=== PATIENT | female | born 1985 | race Caucasian/White ===

== ENCOUNTER 2016-11-12 21:08 | Emergency (ER) | payer OTHER ==
[~2016-11-12 21:08] MED LIST: ALLEGRA60 MG; MULTIPLE VITAMIN PO; VICODIN EQUIVAL1 TAB PO
--- NOTE | 2016-11-12 22:07 | ED ORDER SUMMARY ---
..... Patient: JOAQUIN PEREZ OrderSheet [facility] VisitID: [id number] [address] [place] [address] 31y, F Registration Date/Time: 11/12/2016 ORDER SHEET Weight: 81.6 kg (stated) Allergies: No Known Drug Allergy GENERAL ORDERS: MEDICATION ORDERS: Toradol IM 60 mg (NOW) (21:33 11/12/2016 Braulio Tello) (Ack 21:41 MWinterer R.N.) (21:46 MWinterer R.N.) IV FLUIDS: ORDER SHEET NOTES: [Electronically signed by Jamie Monaco Dr. (22:17 11/12/2016)] [Electronically signed by Kat Green R.N. (23:13 11/12/2016)] [Electronically locked/signed by Kat Green R.N. (23:13 11/12/2016)]
--- NOTE | 2016-11-12 22:07 | ED NURSING NOTES ---
Clinical Report - Nurses [facility] [address] [place] [address] 11/12/2016 21:08 Patient: JOAQUIN PEREZ TRIAGE Acuity: LEVEL 4. Chief Complaint: LEFT EAR PAIN. Alert. No acute distress. SEPSIS SCREEN: Sepsis Screen. Negative (no infection suspected/documented). --21:18 Kat Green R.N. 21:15 11/12/16. BP: 145/84. HR: 83. RR: 16. O2 saturation: 97% on room air. Temp: 98.1 F (oral). Pain level now: 04/01. --21:18 Kat Green R.N. Weight: 81.6 kg stated. Height/Length: 66 inches Per Patient. BMI: 29. --21:17 Kat Green R.N. Medications None. --21:16 Kat Green R.N. Medication/allergy information source: the patient. --21:18 Kat Green R.N. Allergies No Known Drug Allergy. --21:16 Kat Green R.N. History Arrived by private vehicle. Historian: patient. Unaccompanied. Primary physician (Martin). This started today. 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 PAST MEDICAL HX: Immunizations: up-to-date. Uses an intrauterine device. SOCIAL HX: Current every day light tobacco smoker (cigarette)- less than 1/2 a pack per day. Occasional alcohol use. No drug use. FALL RISK ASSESSMENT: Fall risk assessment completed. No fall risk identified. NUTRITIONAL RISK ASSESSMENT: The nutritional risk assessment revealed no deficiencies. FUNCTIONAL ASSESSMENT: Functional assessment: no impairments noted. LEARNING NEEDS ASSESSMENT: The learning needs assessment revealed no barriers. SKIN INTEGRITY ASSESSMENT: Skin integrity risk assessment completed. No skin integrity risk identified. --21:18 Kat Green R.N. Assessment GENERAL / NEURO / PSYCH: Alert. Oriented X 4. Appears in no acute distress. Hess[place] Coma Scale: 15- eyes open spontaneously (4); best verbal response- oriented x 4 (5); best motor response- obeys commands (6). Patient appears calm and cooperative. RESPIRATORY: Respirations not labored. CVS: Capillary refill less than 2 seconds. SKIN: Mucous membranes are pink. Skin is warm and dry. --:18 Kat Green R.N. Interventions ID band on patient. To treatment room. --: Kat Green R.N. PHYSICAL ASSESSMENT :11/12/16. Ambulatory to room. GENERAL / NEURO / PSYCH: Alert. Appears in no acute distress. HEENT: No facial asymmetry noted. Pupils equal, round and reactive to light. Pharynx within normal limits. RESPIRATORY: Respirations not labored. SKIN: Skin is warm and dry. --: Kat Green R.N. NURSING PROGRESS NOTES :11/12/16. Two patient identifiers checked. Call light placed in reach. Bed placed in lowest position. Brakes of bed on. Patient ready for evaluation- chart flagged. --:19 Kat Green R.N. 21:46 11/12/2016 Toradol (Ketorolac Tromethamine) IM 60 mg given. Given in the right anterior lateral thigh. Allergies verified and confirmed 5 rights. --21:46 Kat Green R.N. DISPOSITION / DISCHARGE Departure time: 2219Nov 12 2016. Condition at departure: improved and stable. No learning barriers present. Discharge instructions provided and reviewed with the patient. Reviewed medication(s) side effects, precautions and dosing information. Prescription(s) given to the patient. Patient verbalized understanding. Written instructions provided in Guyanese. The patient was discharged by the physician. She was discharged home. She left the Emergency Department ambulatory and via private vehicle. Patient driving. --23:12 Kat Green R.N. Locked/Released at 11/12/2016 23:13 by Kat Green R.N.
--- NOTE | 2016-11-12 22:07 | ED NURSING NOTES ---
Clinical Report - Nurses [facility] [address] [place] [address] 11/12/2016 21:08 Patient: JOAQUIN PEREZ TRIAGE Acuity: LEVEL 4. Chief Complaint: LEFT EAR PAIN. Alert. No acute distress. SEPSIS SCREEN: Sepsis Screen. Negative (no infection suspected/documented). --21:18 Kat Green R.N. 21:15 11/12/16. BP: 145/84. HR: 83. RR: 16. O2 saturation: 97% on room air. Temp: 98.1 F (oral). Pain level now: 04/01. --21:18 Kat Green R.N. Weight: 81.6 kg stated. Height/Length: 66 inches Per Patient. BMI: 29. --21:17 Kat Green R.N. Medications None. --21:16 Kat Green R.N. Medication/allergy information source: the patient. --21:18 Kat Green R.N. Allergies No Known Drug Allergy. --21:16 Kat Green R.N. History Arrived by private vehicle. Historian: patient. Unaccompanied. Primary physician (Martin). This started today. 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 PAST MEDICAL HX: Immunizations: up-to-date. Uses an intrauterine device. SOCIAL HX: Current every day light tobacco smoker (cigarette)- less than 1/2 a pack per day. Occasional alcohol use. No drug use. FALL RISK ASSESSMENT: Fall risk assessment completed. No fall risk identified. NUTRITIONAL RISK ASSESSMENT: The nutritional risk assessment revealed no deficiencies. FUNCTIONAL ASSESSMENT: Functional assessment: no impairments noted. LEARNING NEEDS ASSESSMENT: The learning needs assessment revealed no barriers. SKIN INTEGRITY ASSESSMENT: Skin integrity risk assessment completed. No skin integrity risk identified. --21:18 Kat Green R.N. Assessment GENERAL / NEURO / PSYCH: Alert. Oriented X 4. Appears in no acute distress. Elton Coma Scale: 15- eyes open spontaneously (4); best verbal response- oriented x 4 (5); best motor response- obeys commands (6). Patient appears calm and cooperative. RESPIRATORY: Respirations not labored. CVS: Capillary refill less than 2 seconds. SKIN: Mucous membranes are pink. Skin is warm and dry. --:18 Kat Green R.N. Interventions ID band on patient. To treatment room. --: Kat Green R.N. PHYSICAL ASSESSMENT :11/12/16. Ambulatory to room. GENERAL / NEURO / PSYCH: Alert. Appears in no acute distress. HEENT: No facial asymmetry noted. Pupils equal, round and reactive to light. Pharynx within normal limits. RESPIRATORY: Respirations not labored. SKIN: Skin is warm and dry. --: Kat Green R.N. NURSING PROGRESS NOTES :11/12/16. Two patient identifiers checked. Call light placed in reach. Bed placed in lowest position. Brakes of bed on. Patient ready for evaluation- chart flagged. --:19 Kat Green R.N. 21:46 11/12/2016 Toradol (Ketorolac Tromethamine) IM 60 mg given. Given in the right anterior lateral thigh. Allergies verified and confirmed 5 rights. --21:46 Kat Green R.N. DISPOSITION / DISCHARGE Departure time: 2219Nov 12 2016. Condition at departure: improved and stable. No learning barriers present. Discharge instructions provided and reviewed with the patient. Reviewed medication(s) side effects, precautions and dosing information. Prescription(s) given to the patient. Patient verbalized understanding. Written instructions provided in Burundian. The patient was discharged by the physician. She was discharged home. She left the Emergency Department ambulatory and via private vehicle. Patient driving. --23:12 Kat Green R.N. Locked/Released at 11/12/2016 23:13 by Kat Green R.N.
--- NOTE | 2016-11-12 22:07 | ED ORDER SUMMARY ---
..... Patient: JOAQUIN PEREZ OrderSheet [facility] VisitID: [id number] [address] [place] [address] 31y, F Registration Date/Time: 11/12/2016 ORDER SHEET Weight: 81.6 kg (stated) Allergies: No Known Drug Allergy GENERAL ORDERS: MEDICATION ORDERS: Toradol IM 60 mg (NOW) (21:33 11/12/2016 Braulio Tello) (Ack 21:41 MWinterer R.N.) (21:46 MWinterer R.N.) IV FLUIDS: ORDER SHEET NOTES: [Electronically signed by Jamie Monaco Dr. (22:17 11/12/2016)] [Electronically signed by Kat Green R.N. (23:13 11/12/2016)] [Electronically locked/signed by Kat Green R.N. (23:13 11/12/2016)]
--- NOTE | 2016-11-12 22:07 | ED CLINICAL REPORT ---
Clinical Report - Physicians/Mid Levels [facility] [address] [place] [address] 11/12/2016 21:08 Patient: JOAQUIN PEREZ Time Seen: 21:17; initial patient contact. Arrived- By private vehicle. Historian- patient. HISTORY OF PRESENT ILLNESS Chief Complaint: EARACHE. Modifying factors. Not worsened by anything. Not relieved by anything. This started today and is still present and worsening. The patient cannot recall the circumstances at the onset. Location- left ear. The pain is described as moderate. The patient has had ear pain. No ear drainage, hearing loss, nasal discharge, complaint of foreign body in the ear or ear trauma. No recent barotrauma, tinnitus, toothache or jaw pain. The patient has had nasal congestion, sinus pressure and a sore throat. Similar symptoms previously: None. Recent medical care: Not recently seen/assessed. REVIEW OF SYSTEMS No fever, chills, cough, difficulty breathing or headache. All systems otherwise negative, except as recorded above. PAST HISTORY Negative. Surgeries: No history of previous surgery. Medications: None. Allergies: No Known Drug Allergy. SOCIAL HISTORY Current every day smoker. Occasional alcohol use. No drug use. ADDITIONAL NOTES The nursing notes have been reviewed with agreement regarding the chief complaint, PMH and patient medications and allergies. PHYSICAL EXAM Vital Signs: 11/12/2016 21:15 BP: 145/84. HR: 83. RR: 16. O2 saturation: 97%. Temp: 98.1 F. Pain level now: 6/10. Have been reviewed. Hypertensive. Heart rate normal. Respiratory rate normal. Temperature normal. Oxygen saturation normal. Appearance: Alert. No acute distress. Eyes: Eyes normal inspection. Ear (right): Right ear normal. Throat: Mild generalized pharyngeal erythema. Ear (left): There is cerumen in the external canal and fluid behind the tympanic membrane. No erythema of the tympanic membrane, dullness of the tympanic membrane or bulging of the tympanic membrane. Does not have loss of tympanic membrane landmarks. Light reflex normal. Neck: Normal inspection. No lymphadenopathy. CVS: Normal heart rate and rhythm. Heart sounds normal. Respiratory: No respiratory distress. Breath sounds normal. Skin: Normal skin color. No rash. Neuro: Oriented X 3. PROGRESS AND PROCEDURES Course of Care: 11/12/2016 21:15 BP: 145/84. HR: 83. RR: 16. O2 saturation: 97%. Temp: 98.1 F. Pain level now: 6/10. Vital Signs: have been reviewed. Hypertensive. Heart rate normal. Respiratory rate normal. Temperature normal. Oxygen saturation normal. Disposition: Discharged home in good and improved condition. Condition: good. CLINICAL IMPRESSION Acute left otalgia. Acute sphenoidal sinusitis INSTRUCTIONS Prescription Medications: Diclofenac 50 mg tablets: take 1 tablet orally every 8 hours as needed for pain. Dispense thirty (30). No refill. Fluticasone nasal spray: 2 sprays to each nostril daily. Dispense one (1) unit. No refills. Follow-up: Screening today revealed the patient's blood pressure to be in the hypertensive range. The patient should follow up with a primary care provider for blood pressure management. (Electronically signed by Jamie Monaco Dr. 11/12/2016 22:17)
--- NOTE | 2016-11-12 22:07 | ED CLINICAL REPORT ---
Clinical Report - Physicians/Mid Levels [facility] [address] [place] [address] 11/12/2016 21:08 Patient: JOAQUIN PEREZ Time Seen: 21:17; initial patient contact. Arrived- By private vehicle. Historian- patient. HISTORY OF PRESENT ILLNESS Chief Complaint: EARACHE. Modifying factors. Not worsened by anything. Not relieved by anything. This started today and is still present and worsening. The patient cannot recall the circumstances at the onset. Location- left ear. The pain is described as moderate. The patient has had ear pain. No ear drainage, hearing loss, nasal discharge, complaint of foreign body in the ear or ear trauma. No recent barotrauma, tinnitus, toothache or jaw pain. The patient has had nasal congestion, sinus pressure and a sore throat. Similar symptoms previously: None. Recent medical care: Not recently seen/assessed. REVIEW OF SYSTEMS No fever, chills, cough, difficulty breathing or headache. All systems otherwise negative, except as recorded above. PAST HISTORY Negative. Surgeries: No history of previous surgery. Medications: None. Allergies: No Known Drug Allergy. SOCIAL HISTORY Current every day smoker. Occasional alcohol use. No drug use. ADDITIONAL NOTES The nursing notes have been reviewed with agreement regarding the chief complaint, PMH and patient medications and allergies. PHYSICAL EXAM Vital Signs: 11/12/2016 21:15 BP: 145/84. HR: 83. RR: 16. O2 saturation: 97%. Temp: 98.1 F. Pain level now: 6/10. Have been reviewed. Hypertensive. Heart rate normal. Respiratory rate normal. Temperature normal. Oxygen saturation normal. Appearance: Alert. No acute distress. Eyes: Eyes normal inspection. Ear (right): Right ear normal. Throat: Mild generalized pharyngeal erythema. Ear (left): There is cerumen in the external canal and fluid behind the tympanic membrane. No erythema of the tympanic membrane, dullness of the tympanic membrane or bulging of the tympanic membrane. Does not have loss of tympanic membrane landmarks. Light reflex normal. Neck: Normal inspection. No lymphadenopathy. CVS: Normal heart rate and rhythm. Heart sounds normal. Respiratory: No respiratory distress. Breath sounds normal. Skin: Normal skin color. No rash. Neuro: Oriented X 3. PROGRESS AND PROCEDURES Course of Care: 11/12/2016 21:15 BP: 145/84. HR: 83. RR: 16. O2 saturation: 97%. Temp: 98.1 F. Pain level now: 6/10. Vital Signs: have been reviewed. Hypertensive. Heart rate normal. Respiratory rate normal. Temperature normal. Oxygen saturation normal. Disposition: Discharged home in good and improved condition. Condition: good. CLINICAL IMPRESSION Acute left otalgia. Acute sphenoidal sinusitis INSTRUCTIONS Prescription Medications: Diclofenac 50 mg tablets: take 1 tablet orally every 8 hours as needed for pain. Dispense thirty (30). No refill. Fluticasone nasal spray: 2 sprays to each nostril daily. Dispense one (1) unit. No refills. Follow-up: Screening today revealed the patient's blood pressure to be in the hypertensive range. The patient should follow up with a primary care provider for blood pressure management. (Electronically signed by Jamie Monaco Dr. 11/12/2016 22:17)
--- NOTE | 2016-11-12 23:13 | ED MAR SUMMARY ---
..... Medication Administration Record [facility] [address] [place] [address] Patient: JOAQUIN PEREZ Visit ID: [id number] 31y, F Weight: 81.6 kg Height/Length: 66 in BMI: 29 ALLERGIES: No Known Drug Allergy Given 21:46 11/12/2016 Kat Green R.N. Medication Administered: TORADOL [IM] (KETOROLAC TROMETHAMINE), Dose: 60 mg IM. Medication Ordered: Toradol IM 60 mg (NOW).
--- NOTE | 2016-11-12 23:13 | ED DISCHARGE INSTRUCTIONS ---
Patient: JOAQUIN PEREZ General Instructions [facility] VisitID: [id number] [place] [address] 31y, F Registration Date/Time: 11/12/2016 Acute left otalgia. Acute sphenoidal sinusitis INSTRUCTIONS Prescription Medications: Diclofenac 50 mg tablets: take 1 tablet orally every 8 hours as needed for pain. Dispense thirty (30). No refill. Fluticasone nasal spray: 2 sprays to each nostril daily. Dispense one (1) unit. No refills. Follow-up: Screening today revealed the patient's blood pressure to be in the hypertensive range. The patient should follow up with a primary care provider for blood pressure management. ADDITIONAL INFORMATION Sinusitis [No Abx Tx] The sinuses are air-filled spaces within the bones of the face. They connect to the inside of the nose. Sinusitis is an inflammation of the tissue lining the sinus cavity. Sinus inflammation can occur during a cold or hay-fever (allergies to pollens and other particles in the air) and cause symptoms of sinus congestion and fullness and perhaps a low-grade fever. This does not require antibiotic treatment. Home Care: Drink plenty of water, hot tea, and other liquids to stay well hydrated. This thins the mucus and promotes sinus drainage. Apply heat to the painful areas of the face. Use a towel soaked in hot water. Or, burglar alarm installer the shower and direct the hot spray onto your face. This is a good way to inhale warm water vapor and get heat on your face at the same time. (Cover your mouth and nose with your hands so you can still breathe as you do this.) Use a vaporizer with products such as [employer] VapoRub (contains menthol) at night. Suck on peppermint, menthol or eucalyptus hard candies during the day. An expectorant containing guaifenesin (such as Robitussin), helps to thin the mucus and promote drainage from the sinuses. [id number] decongestants may be used unless a similar medicine was prescribed. Nasal sprays work the fastest. Use one that contains phenylephrine (René-synephrine, Sinex and others) or oxymetazoline (Afrin). First blow the nose gently to remove mucus, then apply the drops. Do not use these medicines more often than directed on the label or for more than three days or symptoms may worsen. You may also use tablets containing pseudoephedrine (Sudafed). Many sinus remedies combine ingredients, which may increase side effects. Read the labels or ask the pharmacist for help. NOTE: Persons with high blood pressure should not use decongestants. They can raise blood pressure. Antihistamines are useful if allergies are a cause of your sinusitis. The mildest one is chlorpheniramine (available without a prescription). The dose for adults is 8-12mg three times a day. [NOTE: Do not use chlorpheniramine if you have glaucoma or if you are a man with trouble urinating due to an enlarged prostate.] Claritin (loratidine) is an antihistamine that causes less drowsiness and is a good alternative for daytime use. When allergies are the cause for sinusitis, a saline nasal rinse may give relief. Saline nasal rinse reduces swelling and clears excess mucus. This allows sinuses to drain. Pre-packaged kits are available at most drug stores. These contain pre-mixed salt packets and an irrigation device. You may use acetaminophen (Tylenol) or ibuprofen (Motrin, Advil) to control pain, unless another pain medicine was prescribed. [ NOTE: If you have chronic liver or kidney disease or ever had a stomach ulcer, talk with your doctor before using these medicines.] (Aspirin should never be used in anyone under 18 years of age who is ill with a fever. It may cause severe liver damage.) Follow Up with your doctor or this facility in one week or as instructed by our staff if not improving. Get Prompt Medical Attention if any of the following occur: Green or yellow drainage from the nose or into the back of the throat (post-nasal drip) Worsening sinus pain or headache Stiff neck Unusual drowsiness, confusion or not acting like your normal self Swelling of the forehead or eyelids Vision problems including blurred or double vision Fever of 100.4F (38C) or higher, or as directed by your healthcare provider Seizure Fluticasone Propionate Nasal spray, solution What is this medicine? FLUTICASONE (floo TIK a sone) is a corticosteroid. It helps decrease inflammation in your nose. This medicine is used to treat the symptoms of allergies like sneezing, itching, and runny or stuffy nose. How should I use this medicine? This medicine is for use in the nose. Follow the directions on your prescription label. This medicine works best if used regularly. Do not use more often than directed. Make sure that you are using your nasal spray correctly. Ask you doctor or health care provider if you have any questions. Talk to your tool design drafter regarding the use of this medicine in children. While this drug may be prescribed for children as young as 4 years old for selected conditions, precautions do apply. What side effects may I notice from receiving this medicine? Side effects that you should report to your doctor or health behavioral health care coordinator as soon as possible: allergic reactions like skin rash, itching or hives, swelling of the face, lips, or tongue changes in vision flu-like symptoms white patches or sores in the mouth or nose Side effects that usually do not require medical attention (report to your doctor or health behavioral health care coordinator if they continue or are bothersome): burning or irritation inside the nose or throat cough headache nosebleed unusual taste or smell What may interact with this medicine? ketoconazole metyrapone some medicines for HIV vaccines What if I miss a dose? If you miss a dose, use it as soon as you remember. If it is almost time for your next dose, use only that dose and continue with your regular schedule. Do not use double or extra doses. Where should I keep my medicine? Keep out of the reach of children. Store at room temperature between 15 and 30 degrees C (59 and 86 degrees F). Throw away any unused medicine after the expiration date. What should I tell my health care provider before I take this medicine? They need to know if you have any of these conditions: infection, like tuberculosis, herpes, or fungal infection recent surgery on nose or sinuses taking corticosteroid by mouth an unusual or allergic reaction to fluticasone, steroids, other medicines, foods, dyes, or preservatives or trying to get breast-feeding What should I watch for while using this medicine? Visit your doctor or health behavioral health care coordinator for regular checks on your progress. Some symptoms may improve within 12 hours after starting use. Check with your doctor or health behavioral health care coordinator if there is no improvement in your condition after 3 weeks of use. Do not come in contact with people who have chickenpox or the measles while you are taking this medicine. If you do, call your doctor right away. You have been given the following additional information: Sinusitis, No Abx Fluticasone Propionate Nasal spray, solution (Electronically signed by Jamie Monaco Dr. 11/12/2016 22:17)
--- NOTE | 2016-11-12 23:13 | ED MED RECONCILIATION SUMMARY ---
Patient: JOAQUIN PEREZ Medication Reconciliation Report [facility] VisitID: [id number] [place] [address] 31y, F Registration Date/Time: 11/12/2016 Weight: 81.6 kg Height/Length: 66 in. BMI: 29.0 ALLERGIES: No Known Drug Allergy The patient's Home Medications are listed below: NONE. The source(s) of the original Home Medication information: patient The following Medications were given to the patient in the Emergency Department: Toradol [IM] IM 60 mg, administered: 11/12/2016 9:46:00 PM The following Medications were prescribed to the patient: Diclofenac 50 mg tablets: take 1 tablet orally every 8 hours as needed for pain. Dispense thirty (30). No refill. -- Jamie Monaco Dr. Fluticasone nasal spray: 2 sprays to each nostril daily. Dispense one (1) unit. No refills. -- Jamie Monaco Dr.
--- NOTE | 2016-11-12 23:13 | ED MED RECONCILIATION SUMMARY ---
Patient: JOAQUIN PEREZ Medication Reconciliation Report [facility] VisitID: [id number] [place] [address] 31y, F Registration Date/Time: 11/12/2016 Weight: 81.6 kg Height/Length: 66 in. BMI: 29.0 ALLERGIES: No Known Drug Allergy The patient's Home Medications are listed below: NONE. The source(s) of the original Home Medication information: patient The following Medications were given to the patient in the Emergency Department: Toradol [IM] IM 60 mg, administered: 11/12/2016 9:46:00 PM The following Medications were prescribed to the patient: Diclofenac 50 mg tablets: take 1 tablet orally every 8 hours as needed for pain. Dispense thirty (30). No refill. -- Jamie Monaco Dr. Fluticasone nasal spray: 2 sprays to each nostril daily. Dispense one (1) unit. No refills. -- Jamie Monaco Dr.
--- NOTE | 2016-11-12 23:13 | ED MAR SUMMARY ---
..... Medication Administration Record [facility] [address] [place] [address] Patient: JOAQUIN PEREZ Visit ID: [id number] 31y, F Weight: 81.6 kg Height/Length: 66 in BMI: 29 ALLERGIES: No Known Drug Allergy Given 21:46 11/12/2016 Kat Green R.N. Medication Administered: TORADOL [IM] (KETOROLAC TROMETHAMINE), Dose: 60 mg IM. Medication Ordered: Toradol IM 60 mg (NOW).
--- NOTE | 2016-11-12 23:13 | ED DISCHARGE INSTRUCTIONS ---
Patient: JOAQUIN PEREZ General Instructions [facility] VisitID: [id number] [place] [address] 31y, F Registration Date/Time: 11/12/2016 Acute left otalgia. Acute sphenoidal sinusitis INSTRUCTIONS Prescription Medications: Diclofenac 50 mg tablets: take 1 tablet orally every 8 hours as needed for pain. Dispense thirty (30). No refill. Fluticasone nasal spray: 2 sprays to each nostril daily. Dispense one (1) unit. No refills. Follow-up: Screening today revealed the patient's blood pressure to be in the hypertensive range. The patient should follow up with a primary care provider for blood pressure management. ADDITIONAL INFORMATION Sinusitis [No Abx Tx] The sinuses are air-filled spaces within the bones of the face. They connect to the inside of the nose. Sinusitis is an inflammation of the tissue lining the sinus cavity. Sinus inflammation can occur during a cold or hay-fever (allergies to pollens and other particles in the air) and cause symptoms of sinus congestion and fullness and perhaps a low-grade fever. This does not require antibiotic treatment. Home Care: Drink plenty of water, hot tea, and other liquids to stay well hydrated. This thins the mucus and promotes sinus drainage. Apply heat to the painful areas of the face. Use a towel soaked in hot water. Or, track laying equipment operator the shower and direct the hot spray onto your face. This is a good way to inhale warm water vapor and get heat on your face at the same time. (Cover your mouth and nose with your hands so you can still breathe as you do this.) Use a vaporizer with products such as [employer] VapoRub (contains menthol) at night. Suck on peppermint, menthol or eucalyptus hard candies during the day. An expectorant containing guaifenesin (such as Robitussin), helps to thin the mucus and promote drainage from the sinuses. [id number] decongestants may be used unless a similar medicine was prescribed. Nasal sprays work the fastest. Use one that contains phenylephrine (René-synephrine, Sinex and others) or oxymetazoline (Afrin). First blow the nose gently to remove mucus, then apply the drops. Do not use these medicines more often than directed on the label or for more than three days or symptoms may worsen. You may also use tablets containing pseudoephedrine (Sudafed). Many sinus remedies combine ingredients, which may increase side effects. Read the labels or ask the pharmacist for help. NOTE: Persons with high blood pressure should not use decongestants. They can raise blood pressure. Antihistamines are useful if allergies are a cause of your sinusitis. The mildest one is chlorpheniramine (available without a prescription). The dose for adults is 8-12mg three times a day. [NOTE: Do not use chlorpheniramine if you have glaucoma or if you are a man with trouble urinating due to an enlarged prostate.] Claritin (loratidine) is an antihistamine that causes less drowsiness and is a good alternative for daytime use. When allergies are the cause for sinusitis, a saline nasal rinse may give relief. Saline nasal rinse reduces swelling and clears excess mucus. This allows sinuses to drain. Pre-packaged kits are available at most drug stores. These contain pre-mixed salt packets and an irrigation device. You may use acetaminophen (Tylenol) or ibuprofen (Motrin, Advil) to control pain, unless another pain medicine was prescribed. [ NOTE: If you have chronic liver or kidney disease or ever had a stomach ulcer, talk with your doctor before using these medicines.] (Aspirin should never be used in anyone under 18 years of age who is ill with a fever. It may cause severe liver damage.) Follow Up with your doctor or this facility in one week or as instructed by our staff if not improving. Get Prompt Medical Attention if any of the following occur: Green or yellow drainage from the nose or into the back of the throat (post-nasal drip) Worsening sinus pain or headache Stiff neck Unusual drowsiness, confusion or not acting like your normal self Swelling of the forehead or eyelids Vision problems including blurred or double vision Fever of 100.4F (38C) or higher, or as directed by your healthcare provider Seizure Fluticasone Propionate Nasal spray, solution What is this medicine? FLUTICASONE (floo TIK a sone) is a corticosteroid. It helps decrease inflammation in your nose. This medicine is used to treat the symptoms of allergies like sneezing, itching, and runny or stuffy nose. How should I use this medicine? This medicine is for use in the nose. Follow the directions on your prescription label. This medicine works best if used regularly. Do not use more often than directed. Make sure that you are using your nasal spray correctly. Ask you doctor or health care provider if you have any questions. Talk to your transfusion aide regarding the use of this medicine in children. While this drug may be prescribed for children as young as 4 years old for selected conditions, precautions do apply. What side effects may I notice from receiving this medicine? Side effects that you should report to your doctor or health regular senior care provider as soon as possible: allergic reactions like skin rash, itching or hives, swelling of the face, lips, or tongue changes in vision flu-like symptoms white patches or sores in the mouth or nose Side effects that usually do not require medical attention (report to your doctor or health regular senior care provider if they continue or are bothersome): burning or irritation inside the nose or throat cough headache nosebleed unusual taste or smell What may interact with this medicine? ketoconazole metyrapone some medicines for HIV vaccines What if I miss a dose? If you miss a dose, use it as soon as you remember. If it is almost time for your next dose, use only that dose and continue with your regular schedule. Do not use double or extra doses. Where should I keep my medicine? Keep out of the reach of children. Store at room temperature between 15 and 30 degrees C (59 and 86 degrees F). Throw away any unused medicine after the expiration date. What should I tell my health care provider before I take this medicine? They need to know if you have any of these conditions: infection, like tuberculosis, herpes, or fungal infection recent surgery on nose or sinuses taking corticosteroid by mouth an unusual or allergic reaction to fluticasone, steroids, other medicines, foods, dyes, or preservatives or trying to get breast-feeding What should I watch for while using this medicine? Visit your doctor or health regular senior care provider for regular checks on your progress. Some symptoms may improve within 12 hours after starting use. Check with your doctor or health regular senior care provider if there is no improvement in your condition after 3 weeks of use. Do not come in contact with people who have chickenpox or the measles while you are taking this medicine. If you do, call your doctor right away. You have been given the following additional information: Sinusitis, No Abx Fluticasone Propionate Nasal spray, solution (Electronically signed by Jamie Monaco Dr. 11/12/2016 22:17)
== END 2016-11-12 22:20 | disposition home or self-care (01) ==
LOC: ED SRH 21:08
DX: H92.02 Otalgia, left ear (principal); J01.30 Acute sphenoidal sinusitis, unspecified; F17.210 Nicotine dependence, cigarettes, uncomplicated